=== PATIENT | female | born 1945 | race Caucasian/White ===

== ENCOUNTER 2019-02-21 09:39 | Inpatient (IN) | payer MEDICARE, OTHER ==
[2019-02-21 10:42] LABS: ADD MAN DIFF? NO
[2019-02-21 10:55] LABS: ABNORMAL IP MESSAGE 1; BASOPHILS % 0.3 % (0.0-2.0); EOSINOPHILS # 0.1 10^3/ul (0.0-0.5); EOSINOPHILS % 1.7 % (0.0-7.0); HEMATOCRIT 26.6 % (37.0-47.0); HEMOGLOBIN 7.4 g/dl (12.0-16.0); LYMPHOCYTES # 0.7 10^3/ul (0.8-2.9); LYMPHOCYTES % 9.1 % (15.0-51.0); MEAN CORPUSCULAR HEMOGLOBIN 18.2 pg (29.0-33.0); MEAN CORPUSCULAR HGB CONC 27.8 g/dl (32.0-37.0); MEAN CORPUSCULAR VOLUME 65.5 fl (82.0-101.0); MEAN PLATELET VOLUME 9.1 fl (7.4-10.4); MONOCYTE # 0.3 10^3/ul (0.3-0.9); MONOCYTES % 4.2 % (0.0-11.0); NEUTROPHIL # 6.6 10^3/ul (1.6-7.5); NEUTROPHILS % 84.2 % (39.0-77.0); PLATELET COUNT 426 10^3/UL (140-415); RED BLOOD COUNT 4.06 10^6/ul (4.20-5.40); RED CELL DISTRIBUTION WIDTH 20.6 % (11.5-14.5)
[2019-02-21 10:55] LABS: WHITE BLOOD COUNT 7.9 10^3/ul (4.8-10.8)
[2019-02-21 11:02] LABS: POSITIVE DIFF @See below
[2019-02-21 11:04] LABS: ALANINE AMINOTRANSFERASE 28 IU/L (13-69); ALBUMIN 3.7 g/dl (3.3-4.9); ALBUMIN/GLOBULIN RATIO 1.23; ALKALINE PHOSPHATASE 79 IU/L (42-121); ANION GAP 11 (5-13); ASPARTATE AMINO TRANSFERASE 19 IU/L (15-46); BILIRUBIN,INDIRECT 0.4 mg/dl (0-1.1); BILIRUBIN,TOTAL 0.4 mg/dl (0.2-1.3); BLOOD UREA NITROGEN 13 mg/dl (7-20); CALCIUM 8.7 mg/dl (8.4-10.2); CARBON DIOXIDE 28 mmol/L (21-31); CHLORIDE 104 mmol/L (97-110); CREATININE 0.62 mg/dl (0.44-1.00); GLUCOSE 146 mg/dl (70-220); POTASSIUM 3.9 mmol/L (3.5-5.1); SODIUM 143 mmol/L (135-144); TOTAL PROTEIN 6.7 g/dl (6.1-8.1)
[2019-02-21 11:15] LABS: INR 0.89; PROTIME 12.2 Sec (11.9-14.9)
[2019-02-21 11:16] LABS: PARTIAL THROMBOPLASTIN TIME 25.2 Sec (23.0-35.0); TROPONIN-I < 0.012 ng/ml (0.000-0.120)
[2019-02-21] MEDS: PANTOPRAZOLE 40 MG INJ IV (11:51)
[2019-02-21] MEDS: SOD CHLORIDE 0.9% 0 ML IV (12:18)
[2019-02-21] MEDS ORDERED: ACETAMINOPHEN 325 MG TAB PO ×2 (12:30→14:00)
[2019-02-21] MEDS ORDERED: ONDANSETRON 4 MG INJ IV (12:30)
[2019-02-21] MEDS: MAGNESIUM CITRATE 300 ML BTL PO ×2 (13:00→15:32)
[2019-02-21] MEDS ORDERED: NACL 0.9% 3 ML SYG IV (14:00)
[2019-02-21] MEDS ORDERED: ZOLPIDEM 5 MG TAB PO (14:00)
[2019-02-21] MEDS ORDERED: LORAZEPAM 0.5 MG TAB PO (14:00)
[2019-02-21] MEDS ORDERED: NITROGLYCERIN (SL) 0.4 MG TAB SL (14:00)
[2019-02-21] MEDS: LACTULOSE 30ML CUP PO ×3 (15:32→23:04)
[2019-02-21] MEDS: PRAMIPEXOLE 0.25 MG TAB PO (21:00)
[2019-02-21] MEDS: INSULIN ASPART [NOVOLOG] 3 ML PEN SC ×2 (23:02→23:04)
[2019-02-21] MEDS: clonAZEPAM 0.5 MG TAB PO (23:03)
[2019-02-21] MEDS: EZETIMIBE 10 MG TAB PO (23:03)
[2019-02-21] MEDS: MONTELUKAST 10 MG TAB PO (23:04)
[2019-02-21] MEDS: ATORVASTATIN 80 MG TAB PO (23:04)
[2019-02-21] MEDS: GABAPENTIN 300 MG CAP PO (23:04)
[2019-02-21] MEDS: D5W-0.45 NACL + KCL 20 MEQ 1,000 ML IV ×2 (23:09→23:50)
[2019-02-22] MEDS: LACTULOSE 30ML CUP PO ×3 (02:47→05:46)
[2019-02-22 05:46] LABS: ADD MAN DIFF? NO
[2019-02-22 06:00] LABS: WHITE BLOOD COUNT 5.9 10^3/ul (4.8-10.8)
[2019-02-22 06:00] LABS: ABNORMAL IP MESSAGE 1; BASOPHILS % 0.5 % (0.0-2.0); EOSINOPHILS # 0.2 10^3/ul (0.0-0.5); EOSINOPHILS % 3.4 % (0.0-7.0); HEMATOCRIT 25.1 % (37.0-47.0); HEMOGLOBIN 7.2 g/dl (12.0-16.0); LYMPHOCYTES # 1.4 10^3/ul (0.8-2.9); LYMPHOCYTES % 23.6 % (15.0-51.0); MEAN CORPUSCULAR HEMOGLOBIN 19.3 pg (29.0-33.0); MEAN CORPUSCULAR HGB CONC 28.7 g/dl (32.0-37.0); MEAN CORPUSCULAR VOLUME 67.1 fl (82.0-101.0); MEAN PLATELET VOLUME 9.4 fl (7.4-10.4); MONOCYTE # 0.5 10^3/ul (0.3-0.9); MONOCYTES % 8.8 % (0.0-11.0); NEUTROPHIL # 3.8 10^3/ul (1.6-7.5); NEUTROPHILS % 63.4 % (39.0-77.0); PLATELET COUNT 355 10^3/UL (140-415); RED BLOOD COUNT 3.74 10^6/ul (4.20-5.40); RED CELL DISTRIBUTION WIDTH 21.5 % (11.5-14.5)
[2019-02-22] MEDS ORDERED: PANTOPRAZOLE 40 MG INJ IV (06:00)
[2019-02-22 06:13] LABS: HEMOGLOBIN A1C 6.8 % (0-5.9)
[2019-02-22 06:15] LABS: POSITIVE DIFF @See below
[2019-02-22] MEDS: LEVOTHYROXINE 175 MCG TAB PO (07:00)
[2019-02-22] MEDS: GABAPENTIN 300 MG CAP PO ×2 (08:03→21:26)
[2019-02-22] MEDS: LOSARTAN 25 MG TAB PO (08:03)
[2019-02-22] MEDS: ROFLUMILAST 500 MCG TABLET PO (08:03)
[2019-02-22] MEDS: FAMOTIDINE 20 MG INJ IV (08:03)
[2019-02-22] MEDS: FLUTICASONE/VILANTEROL 200-25 INH DEVICE INH (08:03)
[2019-02-22] MEDS: LORATADINE 10 MG TAB PO (08:03)
[2019-02-22] MEDS: FLUOXETINE 20 MG CAP PO (08:03)
[2019-02-22] MEDS: CYANOCOBALAMIN 500 MCG TAB PO (08:03)
[2019-02-22] MEDS: INSULIN ASPART [NOVOLOG] 3 ML PEN SC ×4 (08:11→21:00)
[2019-02-22] MEDS ORDERED: CYANOCOBALAMIN 500 MCG TAB PO (09:00)
[2019-02-22] MEDS: D5W-0.45 NACL + KCL 20 MEQ 1,000 ML IV ×2 (10:44→21:27)
[2019-02-22 11:16] LABS: IMMEDIATE SPIN CROSSMATCH 1 2
[2019-02-22] MEDS: SOD CHLORIDE 0.9% 250 ML IV* (11:28)
[2019-02-22] MEDS: ALBUTEROL 0.083% (NEB) 2.5 MG/3 ML AMP HHN (13:25)
[2019-02-22] MEDS: LIDOCAINE 2% (SDV) 5 ML INJ (13:58)
[2019-02-22] MEDS: PROPOFOL 60 ML (13:58)
[2019-02-22] MEDS ORDERED: ALBUTEROL 0.083% (NEB) 2.5 MG/3 ML AMP HHN (14:00)
[2019-02-22] MEDS ORDERED: ONDANSETRON 4 MG INJ IV (14:00)
[2019-02-22] MEDS ORDERED: FENTAnyl 50 MCG/ML VIAL IV (14:00)
[2019-02-22] MEDS ORDERED: EPHEDrine 25 MG/5 ML SYG IV (14:00)
[2019-02-22] MEDS ORDERED: hydrALAzine 20 MG INJ IV (14:00)
[2019-02-22] MEDS: FLUCONAZOLE 100 MG TAB GTB (17:48)
[2019-02-22] MEDS ORDERED: LEVALBUTEROL (NEB) 1.25 MG/0.5 ML AMP HHN (18:00)
[2019-02-22] MEDS ORDERED: DILTIAZEM 25 MG INJ IV (20:00)
[2019-02-22 20:16] LABS: THYROID STIMULATING HORMONE 0.831 MIU/L (0.465-4.680)
[2019-02-22] MEDS: PRAMIPEXOLE 0.25 MG TAB PO (21:00)
[2019-02-22] MEDS: ATENOLOL 25 MG TAB PO (21:00)
[2019-02-22] MEDS: ONDANSETRON 4 MG INJ IV (21:05)
[2019-02-22] MEDS: METOCLOPRAMIDE 10 MG INJ IV (21:24)
[2019-02-22] MEDS: ATORVASTATIN 80 MG TAB PO (21:26)
[2019-02-22] MEDS: EZETIMIBE 10 MG TAB PO (21:26)
[2019-02-22] MEDS: clonAZEPAM 0.5 MG TAB PO (21:26)
[2019-02-22] MEDS: MONTELUKAST 10 MG TAB PO (21:26)
[2019-02-23] MEDS: IOHEXOL 14.3 MG(I)/ML (ADULT) BTL PO (00:15)
[2019-02-23] MEDS: IOHEXOL 300MG/ML 150 ML BTL (00:44)
[2019-02-23] MEDS: SOD CHLORIDE 0.9% 100 ML (00:44)
[2019-02-23] MEDS: D5W-0.45 NACL + KCL 20 MEQ 1,000 ML IV ×2 (05:44→10:05)
[2019-02-23 06:09] LABS: ADD MAN DIFF? NO
[2019-02-23 06:12] LABS: WHITE BLOOD COUNT 6.3 10^3/ul (4.8-10.8)
[2019-02-23 06:12] LABS: ABNORMAL IP MESSAGE 1; BASOPHILS % 0.3 % (0.0-2.0); EOSINOPHILS # 0.2 10^3/ul (0.0-0.5); EOSINOPHILS % 2.5 % (0.0-7.0); HEMATOCRIT 28.4 % (37.0-47.0); HEMOGLOBIN 8.2 g/dl (12.0-16.0); LYMPHOCYTES # 1.2 10^3/ul (0.8-2.9); MEAN CORPUSCULAR HEMOGLOBIN 20.1 pg (29.0-33.0); MEAN CORPUSCULAR HGB CONC 28.9 g/dl (32.0-37.0); MEAN CORPUSCULAR VOLUME 69.6 fl (82.0-101.0); MEAN PLATELET VOLUME 9.6 fl (7.4-10.4); MONOCYTE # 0.5 10^3/ul (0.3-0.9); MONOCYTES % 8.4 % (0.0-11.0); NEUTROPHIL # 4.4 10^3/ul (1.6-7.5); NEUTROPHILS % 69.6 % (39.0-77.0); PLATELET COUNT 338 10^3/UL (140-415); RED BLOOD COUNT 4.08 10^6/ul (4.20-5.40); RED CELL DISTRIBUTION WIDTH 23.7 % (11.5-14.5)
[2019-02-23 06:20] LABS: POSITIVE DIFF @See below
[2019-02-23 06:54] LABS: ANION GAP 4 (5-13); BLOOD UREA NITROGEN 4 mg/dl (7-20); CALCIUM 8.1 mg/dl (8.4-10.2); CARBON DIOXIDE 29 mmol/L (21-31); CHLORIDE 106 mmol/L (97-110); CREATININE 0.54 mg/dl (0.44-1.00); GLUCOSE 105 mg/dl (70-220); POTASSIUM 3.7 mmol/L (3.5-5.1); SODIUM 139 mmol/L (135-144)
[2019-02-23 06:57] LABS: TROPONIN-I < 0.012 ng/ml (0.000-0.120)
[2019-02-23] MEDS: LEVOTHYROXINE 175 MCG TAB PO (07:00)
[2019-02-23 07:01] LABS: CHOL/HDL RATIO 1.7 RATIO; HDL CHOLESTEROL 54 mg/dl (33-92); LDL CHOLESTEROL,CALCULATED 26 mg/dl; TRIGLYCERIDES 83 mg/dl (0-149)
[2019-02-23 07:01] LABS: CHOLESTEROL 97 mg/dl (100-200)
[2019-02-23 07:22] LABS: CARCINOEMBRYONIC ANTIGEN 4.8 ng/ml (0.0-5.0)
[2019-02-23] MEDS: INSULIN ASPART [NOVOLOG] 3 ML PEN SC ×4 (08:00→21:00)
[2019-02-23] MEDS: ATENOLOL 25 MG TAB PO ×3 (09:00→20:52)
[2019-02-23] MEDS: FAMOTIDINE 20 MG INJ IV (10:04)
[2019-02-23] MEDS: CYANOCOBALAMIN 500 MCG TAB PO (10:05)
[2019-02-23] MEDS: FLUOXETINE 20 MG CAP PO (10:05)
[2019-02-23] MEDS: LORATADINE 10 MG TAB PO (10:05)
[2019-02-23] MEDS: LOSARTAN 25 MG TAB PO (10:07)
[2019-02-23] MEDS: GABAPENTIN 300 MG CAP PO ×2 (10:08→20:51)
[2019-02-23] MEDS: ROFLUMILAST 500 MCG TABLET PO (10:08)
[2019-02-23] MEDS: FLUCONAZOLE 100 MG TAB GTB (10:09)
[2019-02-23] MEDS: FLUTICASONE/VILANTEROL 200-25 INH DEVICE INH (10:09)
[2019-02-23] MEDS: LEVALBUTEROL (NEB) 1.25 MG/0.5 ML AMP HHN (20:18)
[2019-02-23] MEDS: AMOXICILLIN 500 MG CAP PO (20:50)
[2019-02-23] MEDS: EZETIMIBE 10 MG TAB PO (20:51)
[2019-02-23] MEDS: clonAZEPAM 0.5 MG TAB PO (20:51)
[2019-02-23] MEDS: ATORVASTATIN 80 MG TAB PO (20:51)
[2019-02-23] MEDS: MONTELUKAST 10 MG TAB PO (20:51)
[2019-02-23] MEDS: FERROUS SULFATE (EC) 325 MG TAB PO (20:51)
[2019-02-23] MEDS: PRAMIPEXOLE 0.25 MG TAB PO (21:00)
[2019-02-23] MEDS: CLARITHROMYCIN 500 MG TAB PO (21:48)
[2019-02-23] MEDS: DEXAMETHASONE 1 MG TAB PO (23:22)
[2019-02-24] MEDS: LEVALBUTEROL (NEB) 1.25 MG/0.5 ML AMP HHN ×4 (01:00→12:43)
[2019-02-24] MEDS: PANTOPRAZOLE (EC) 40 MG TAB PO (06:02)
[2019-02-24] MEDS: LEVOTHYROXINE 175 MCG TAB PO (06:02)
[2019-02-24] MEDS: INSULIN ASPART [NOVOLOG] 3 ML PEN SC ×2 (08:10→12:00)
[2019-02-24] MEDS: CLARITHROMYCIN 500 MG TAB PO (08:28)
[2019-02-24] MEDS: ROFLUMILAST 500 MCG TABLET PO (08:28)
[2019-02-24] MEDS: FLUCONAZOLE 100 MG TAB GTB (08:28)
[2019-02-24] MEDS: AMOXICILLIN 500 MG CAP PO (08:28)
[2019-02-24] MEDS: FLUOXETINE 20 MG CAP PO (08:28)
[2019-02-24] MEDS: CYANOCOBALAMIN 500 MCG TAB PO (08:28)
[2019-02-24] MEDS: LORATADINE 10 MG TAB PO (08:29)
[2019-02-24] MEDS: ATENOLOL 25 MG TAB PO (08:29)
[2019-02-24] MEDS: FERROUS SULFATE (EC) 325 MG TAB PO ×2 (08:29→13:52)
[2019-02-24] MEDS: GABAPENTIN 300 MG CAP PO (08:29)
[2019-02-24] MEDS: FLUTICASONE/VILANTEROL 200-25 INH DEVICE INH (08:30)
[2019-02-24] MEDS: LOSARTAN 25 MG TAB PO (08:30)
[2019-02-24] MEDS: CHLORHEXIDINE GLUCONATE 15 ML UD CUP MT (08:43)
[2019-02-24 08:52] LABS: ADD MAN DIFF? NO
[2019-02-24 08:54] LABS: WHITE BLOOD COUNT 10.5 10^3/ul (4.8-10.8)
[2019-02-24 08:54] LABS: ABNORMAL IP MESSAGE 1; BASOPHILS % 0.2 % (0.0-2.0); HEMATOCRIT 29.2 % (37.0-47.0); HEMOGLOBIN 8.6 g/dl (12.0-16.0); LYMPHOCYTES # 0.8 10^3/ul (0.8-2.9); LYMPHOCYTES % 7.5 % (15.0-51.0); MEAN CORPUSCULAR HEMOGLOBIN 20.2 pg (29.0-33.0); MEAN CORPUSCULAR HGB CONC 29.5 g/dl (32.0-37.0); MEAN CORPUSCULAR VOLUME 68.7 fl (82.0-101.0); MEAN PLATELET VOLUME 9.8 fl (7.4-10.4); MONOCYTE # 0.4 10^3/ul (0.3-0.9); NEUTROPHIL # 9.3 10^3/ul (1.6-7.5); NEUTROPHILS % 87.9 % (39.0-77.0); PLATELET COUNT 333 10^3/UL (140-415); RED BLOOD COUNT 4.25 10^6/ul (4.20-5.40); RED CELL DISTRIBUTION WIDTH 24.6 % (11.5-14.5)
[2019-02-24 08:55] LABS: POSITIVE DIFF @See below
[2019-02-24] MEDS ORDERED: FAMOTIDINE 20 MG TAB PO (09:00)
[2019-02-24 09:46] LABS: CANCER ANTIGEN 19-9 8.4 U/ml (0.0-37.0)
[2019-02-24 16:21] LABS: ALPHA FETOPROTEIN 3.99 IU/L (0.00-7.21)
[2019-02-24 16:26] LABS: CARCINOEMBRYONIC ANTIGEN 5.1 ng/ml (0.0-5.0)
[2019-02-24 16:30] LABS: CANCER ANTIGEN 19-9 7.6 U/ml (0.0-37.0)
== END 2019-02-24 16:05 | disposition home or self-care (01) | DRG 375 ==
LOC: 6WM 21:38 → E/R 09:39 → 6WM 12:22
PROC: 0DBK8ZX Excision of Ascending Colon, Via Natural or Artificial Opening Endoscopic, Diagnostic (ICD-10-PCS; principal; 2019-02-22 13:53)
PROC: 30233N1 Transfusion of Nonautologous Red Blood Cells into Peripheral Vein, Percutaneous Approach (ICD-10-PCS; 2019-02-22 13:53)
PROC: 0DB58ZX Excision of Esophagus, Via Natural or Artificial Opening Endoscopic, Diagnostic (ICD-10-PCS; 2019-02-22 13:53)
PROC: 0DB68ZX Excision of Stomach, Via Natural or Artificial Opening Endoscopic, Diagnostic (ICD-10-PCS; 2019-02-22 13:53)
DX: C18.2 Malignant neoplasm of ascending colon (principal); I47.1 Supraventricular tachycardia; B37.81 Candidal esophagitis; D50.0 Iron deficiency anemia secondary to blood loss (chronic); E11.8 Type 2 diabetes mellitus with unspecified complications; Z72.0 Tobacco use; J44.9 Chronic obstructive pulmonary disease, unspecified; I10 Essential (primary) hypertension; K25.9 Gastric ulcer, unspecified as acute or chronic, without hemorrhage or perforation; K62.1 Rectal polyp; G47.33 Obstructive sleep apnea (adult) (pediatric); F33.41 Major depressive disorder, recurrent, in partial remission; E06.3 Autoimmune thyroiditis
CPT/HCPCS: 36415; 36430; 71045; 71260; 74177; 74183; 80048; 80053; 80061; 82105; 82378; 82533; 82962; 83036; 84443; 84484; 85025; 85610; 85730; 86301; 86644; 86850; 86900; 86901; 86920; 88305; 88312; 88313; 93005; 93306; 94640; 94660; 96374; 99285-25

== ENCOUNTER 2019-03-23 08:31 | Day surgery (SDC) | payer MEDICARE, OTHER ==
[2019-03-23 09:36] LABS: ADD MAN DIFF? NO
[2019-03-23 09:41] LABS: ABNORMAL IP MESSAGE 1; BASOPHILS % 0.7 % (0.0-2.0); EOSINOPHILS # 0.3 10^3/ul (0.0-0.5); EOSINOPHILS % 5.6 % (0.0-7.0); HEMATOCRIT 33.8 % (37.0-47.0); HEMOGLOBIN 10.3 g/dl (12.0-16.0); LYMPHOCYTES # 1.4 10^3/ul (0.8-2.9); LYMPHOCYTES % 25.7 % (15.0-51.0); MEAN CORPUSCULAR HGB CONC 30.5 g/dl (32.0-37.0); MEAN CORPUSCULAR VOLUME 78.8 fl (82.0-101.0); MEAN PLATELET VOLUME 9.2 fl (7.4-10.4); MONOCYTE # 0.3 10^3/ul (0.3-0.9); MONOCYTES % 6.3 % (0.0-11.0); NEUTROPHIL # 3.3 10^3/ul (1.6-7.5); NEUTROPHILS % 61.1 % (39.0-77.0); PLATELET COUNT 251 10^3/UL (140-415); RED BLOOD COUNT 4.29 10^6/ul (4.20-5.40)
[2019-03-23 09:41] LABS: WHITE BLOOD COUNT 5.4 10^3/ul (4.8-10.8)
[2019-03-23 09:43] LABS: POSITIVE DIFF @See below
[2019-03-23 09:58] LABS: ALANINE AMINOTRANSFERASE 23 IU/L (13-69); ALBUMIN 3.6 g/dl (3.3-4.9); ALBUMIN/GLOBULIN RATIO 1.24; ALKALINE PHOSPHATASE 62 IU/L (42-121); ANION GAP 7 (5-13); ASPARTATE AMINO TRANSFERASE 22 IU/L (15-46); BILIRUBIN,INDIRECT 0.3 mg/dl (0-1.1); BILIRUBIN,TOTAL 0.3 mg/dl (0.2-1.3); BLOOD UREA NITROGEN 11 mg/dl (7-20); CALCIUM 8.9 mg/dl (8.4-10.2); CARBON DIOXIDE 28 mmol/L (21-31); CHLORIDE 106 mmol/L (97-110); CREATININE 0.54 mg/dl (0.44-1.00); GLUCOSE 118 mg/dl (70-220); POTASSIUM 3.5 mmol/L (3.5-5.1); SODIUM 141 mmol/L (135-144); TOTAL PROTEIN 6.5 g/dl (6.1-8.1)
[2019-03-23 09:59] LABS: INR 0.88; PT RATIO 0.9
[2019-03-23 10:00] LABS: PARTIAL THROMBOPLASTIN TIME 28.2 Sec (23.0-35.0)
[2019-03-23] MEDS ORDERED: LACTATED RINGER'S 1,000 ML IV (10:00)
[2019-03-23] MEDS ORDERED: PROPOFOL 20 ML (10:58)
[2019-03-23] MEDS ORDERED: SUCCINYLCHOLINE CHLORIDE 100 MG/5 ML SYG IV (10:58)
[2019-03-23] MEDS ORDERED: LIDOCAINE 2% (SDV) 5 ML INJ (10:58)
[2019-03-23] MEDS: INDOMETHACIN 50 MG SUPP PR (11:55)
[2019-03-23] MEDS ORDERED: GLUCAGON 1 MG INJ (12:11)
[2019-03-23] MEDS ORDERED: IOHEXOL 300MG/ML 30 ML BTL (12:31)
[2019-03-23] MEDS: ONDANSETRON 4 MG INJ IV (12:59)
[2019-03-23] MEDS: hydrALAzine 20 MG INJ IV (12:59)
[2019-03-23] MEDS ORDERED: HYDROmorphONE 1 MG/5 ML IV SYRINGE IV ×3 (13:00)
[2019-03-23] MEDS ORDERED: OXYCODONE/ACETAMINOPHEN (5/325) TAB PO ×2 (13:00)
[2019-03-23] MEDS ORDERED: MIDAZOLAM 1 MG/ML 2 ML INJ IV (13:00)
[2019-03-23] MEDS ORDERED: EPHEDrine 25 MG/5 ML SYG IV (13:00)
[2019-03-23] MEDS ORDERED: MEPERIDINE 25 MG INJ IV (13:00)
[2019-03-23] MEDS ORDERED: FENTAnyl 50 MCG/ML VIAL IV ×3 (13:00)
[2019-03-23] MEDS ORDERED: DIPHENHYDRAMINE 50 MG INJ IV (13:00)
[2019-03-23] MEDS: LABETALOL HCL 20MG INJ IV (13:20)
[2019-03-23] MEDS: METOCLOPRAMIDE 10 MG INJ IV (13:56)
== END 2019-03-23 15:10 | disposition home or self-care (01) ==
LOC: GIL 08:31 → SDS 08:31 → GIL 15:10
DX: K80.50 Calculus of bile duct without cholangitis or cholecystitis without obstruction (principal); C18.9 Malignant neoplasm of colon, unspecified; I10 Essential (primary) hypertension; E78.5 Hyperlipidemia, unspecified; E03.9 Hypothyroidism, unspecified; J44.9 Chronic obstructive pulmonary disease, unspecified; Z87.891 Personal history of nicotine dependence
CPT/HCPCS: 43264; 74330; 80053; 85025; 85610; 85730; 88104; 88305; 93005

== ENCOUNTER → 2019-04-16 | Outpatient (CLI) | payer MEDICARE, OTHER | END | disposition home or self-care (01) | LOC: VAS 15:39 | DX: R60.9 Edema, unspecified (principal) | CPT/HCPCS: 93971 ==